=== PATIENT | male | born 1980 | race Caucasian/White ===

== ENCOUNTER 2019-01-15 12:58 | Emergency (ER) | payer OTHER, SELFPAY ==
[2019-01-15] VITALS (30 sets, daily range): BP systolic 106–117; BP diastolic 51–97; PULSE 45–77; RESP 9–24; TEMP 36.6; O2SAT 98–100
[2019-01-15] MEDS: Normal Saline Flush 10 ML SYR IVP (13:05)
[2019-01-15] MEDS: Normal Saline 1,000 ML 1000 ML IV (13:05)
--- NOTE | 2019-01-15 13:07 | DI.RAD_ITS ---
SYMPTOMS/DIAGNOSIS: SYNCOPE PA AND LATERAL CHEST: The heart is normal in size. The lungs are clear. The mediastinal structures and pleura appear intact. CONCLUSION: Normal chest.
--- NOTE | 2019-01-15 13:07 | DI.CT_ITS ---
SYMPTOMS/DIAGNOSIS: SYNCOPE CRANIAL CT (WITHOUT CONTRAST): A noncontrast cranial CT was performed. The ventricular system is normal in appearance. There is no evidence of an intracranial mass lesion. There is no evidence of a subdural or epidural hematoma. No focal areas of decreased attenuation are seen. CONCLUSION: Normal noncontrast Cranial CT.
--- NOTE | 2019-01-15 13:08 | W.ED.GENAD ---
Discharge Plan Disposition Patient Disposition: HOME Condition: Improving Discharge Details Chief Complaint: Dizzy/Sync Clinical Impression: Syncope, vasovagal Primary Care Provider: Luz,Local ED Provider: Rajeev Howard Home Meds and New Rx's Prescriptions: No Action No Known Home Meds RF: 0 Discharge Instructions Instructions: Syncope (ED) Additional Instructions: Home to rest this evening. Return to the emergency department for any acute concerns while in the area. Please make an appointment to follow-up with your physician physician upon your return this week to home in [place]. Your work-up in the emergency department today included EKG, chest x-ray, CAT scan of the head were unremarkable for any acute findings. You had laboratory work performed including a white blood cell count of 6.7, hematocrit 41.5, platelets 203, sodium 138, potassium 3.5, chloride 103, bicarb 23, BUN 18, creatinine 1.0, glucose 117, calcium 8.8, magnesium 1.8, total bili 0.4, AST 19, ALT 36, alk phos 59, albumin 3.8, Troponin <0.02 Medical Decision Making Healthy 38-year-old male from [place]. He is here visiting family for a . He was recently told he may have an abdominal/ventral wall hernia and was palpating this when he became anxious, felt flushed, became diaphoretic and then had a witnessed syncopal event without seizure activity. No tongue biting, no loss of bowel or bladder continence, no chest pain or palpitations, improved by the time of arrival. Vital signs are normal. His neurologic exam is without deficit. Differential diagnosis includes vasovagal mediated syncope, dehydration, electrolyte abnormality, must exclude cardiomegaly, intracranial mass, arrhythmia. Placed on a monitoring and evaluation advisor, screening laboratories, EKG obtained and he is referred for chest x-ray and CT scan of the head. Diagnostics: Unremarkable CT head, negative chest x-ray, labs reassuring without significant acute finding. Patient remains improved. Observed on monitoring and evaluation advisor and repeat troponin obtained and negative. He will reiterate that he was quite worried about possibility of ventral hernia prior to becoming anxious and having a brief syncopal event. I think that this is likely vagal mediated syncope. He is in the local area until Friday when he returns to [place]. He understands homecare as well as return precautions. He is stable and improved, appropriate for discharge to home at this time. Medical Records Medical records reviewed: Yes I reviewed the patient's medical records. Laboratory Results - last 24 hr 01/15/19 01/15/19 13:05 13:05 WBC 6.70 RBC 4.62 Hgb 13.9 Hct 41.5 MCV 89.8 MCH 30.1 MCHC 33.5 RDW 13.6 Plt Count 203 MPV 10.6 Immature Gran % 0.1 Neutrophils % 60.7 Lymphocytes % 31.5 Monocytes % 6.9 Eosinophils % 0.7 Basophils % 0.1 Absolute Neutrophils 4.06 Absolute Lymphocytes 2.11 Absolute Monocytes 0.46 Absolute Eosinophils 0.05 Absolute Basophils 0.01 Sodium 138 Potassium 3.5 Chloride 103 Carbon Dioxide 23.7 Anion Gap 11.3 H BUN 18 Creatinine 1.00 Estimated GFR/1.73 m2 >= 60.00 Glucose 117 H Calcium 8.8 Magnesium 1.8 Total Bilirubin 0.4 AST 19 ALT 36 Alkaline Phosphatase 59 Troponin I < 0.02 Total Protein 6.7 Albumin 3.8 ECG Data Attestation: I personally reviewed and interpreted this ECG (s) as follows: Prior ECG tracings: not available for review Interpretation: Normal sinus rhythm with a rate of 62, J-point elevation present in leads V4 through V5. No acute ST segment elevation, the QRS is narrow HPI General Mode of arrival: ambulatory. Date/Time Provider Initiated Documentation: 01/15/19 13:06. Limitations to Documentation: no limitations. Information obtained by: patient and family. History of Present Illness 38 year old M presents to the emergency department with the chief complaint of Syncope. Gradual onset of flushing sensation, anxiety., described as moderate, and is localized to the head. Patient reports no radiation. Patient started experiencing this minute(s) and it has been now resolved. No relieving factors improve symptom(s), No exacerbating factors reported . Patient notes diaphoresis and syncope; denies chest pain, headaches, loss of appetite, nausea/vomiting and shortness of breath. Patient did receive the following treatments prior to arrival, none Related Data Home Medications Medication Instructions Recorded Confirmed Unknown [No Known Home Meds] 01/15/19 01/15/19 Allergies Allergy/AdvReac Type Severity Reaction Status Date / Time No Known Allergies Allergy Unverified 01/15/19 13:07 General Stated Complaint: Dizzy/Sync CAL: 3 Review of Systems Review of Systems 8 systems reviewed and otherwise negative [facility] Social History Smoking/Tobacco Use Status: Never Alcohol Intake: current Alcohol Intake frequency: a few times a month Drug use: Never Do you feel safe at home: Yes Do you feel safe in your relationship?: Yes Exam Narrative Exam Narrative: GEN: awake, alert, oriented 3. Pleasant, well groomed, interactive. HEAD: Normocephalic, atraumatic ENT: Mucous membranes moist, oropharynx unremarkable, External ear exam unremarkable EYES: PERRL, EOMI NECK: Full ROM, no YELENA, no menigismus CHEST/RESP: Nontender, clear to auscultation bilateral, no wheeze/rhonchi/rales CARDIOVASCULAR: RRR, no murmur, rub yenny. 2+ Rad pulse bilateral ABDOMEN: Soft, nontender, no mass. +Bowel sounds EXT: Full ROM, no edema, no rash Neuro: Grossly normal neurologic exam, cranial nerves II through XII intact, conversant, interactive. Psych: Speech fluent, thoughts congruent, affect normal Course Vital Signs Temperature 36.6 C 01/15/19 13:01 Pulse 60 01/15/19 13:01 Respiratory Rate 16 01/15/19 13:01 Blood Pressure 117/62 01/15/19 13:01 Pulse Oximetry 100 01/15/19 13:01 Temperature 36.6 C 01/15/19 13:01 Temperature Source Skin 01/15/19 13:01 Pulse 60 01/15/19 13:01 Respiratory Rate 16 01/15/19 13:01 Respiratory Effort Non-Labored 01/15/19 13:05 Blood Pressure 117/62 01/15/19 13:01 Pulse Oximetry 100 01/15/19 13:01 Oxygen Delivery Method Room Air 01/15/19 13:01 Oxygen Flow Rate 0 01/15/19 13:01
[2019-01-15 13:15] LABS: Abs Immature Grans 0.01 k/cumm (0.0-0.09); Absolute Basophil Count 0.01 k/cumm (0.0-0.2); Absolute Eosinophil Count 0.05 k/cumm (0.0-0.7); Absolute Lymphocyte Count 2.11 k/cumm (1.2-3.4); Absolute Monocyte Count 0.46 k/cumm (0.11-0.7); Absolute Neutrophil Count 4.06 k/cumm (1.2-6.7); Basophils % 0.1; Eosinophils % 0.7; HCT 41.5 % (40.0-50.0); HGB 13.9 g/dL (13.5-17.5); Immature Grans % 0.1; Lymphocytes % 31.5; Mean Corp. HGB Concentration 33.5 g/dL (32.0-36.0); Mean Corpuscular Hemoglobin 30.1 pg (27.0-33.0); Mean Corpuscular Volume 89.8 fL (80-95); Mean Platelet Volume 10.6 fL (8.0-11.0); Monocytes % 6.9; Neutrophils % 60.7; Platelet Count 203 x1000/uL (130-400); RBC 4.62 m/cumm (4.50-6.00); RBC Distribution Width 13.6 % (11.8-14.1)
[2019-01-15 13:33] LABS: ALT 36 U/L (12-78); AST 19 U/L (15-37); Albumin 3.8 g/dL (3.4-5.0); Alkaline Phosphatase 59 U/L (46-116); Anion Gap 11.3 mmol/L (3-11); BUN 18 mg/dL (7-18); Bilirubin, Total 0.4 mg/dL (0.2-1.0); CO2 23.7 mmol/L (21.0-32.0); Calcium 8.8 mg/dL (8.5-10.1); Chloride 103 mmol/L (98-107); Glucose 117 mg/dL (70-100); Magnesium 1.8 mg/dL (1.8-2.4); Potassium 3.5 mmol/L (3.5-5.1); Sodium 138 mmol/L (136-145); Total Protein 6.7 g/dL (6.4-8.2)
[2019-01-15 13:35] LABS: Troponin I < 0.02 ng/mL (0.00-0.06)
[2019-01-15 15:40] LABS: Troponin I < 0.02 ng/mL (0.00-0.06)
== END 2019-01-15 16:00 | disposition home or self-care (01) ==
PROVIDERS: Emergency Provider Emergency Medicine
DX: R55 Syncope and collapse (principal)
CPT/HCPCS: 36415; 80053; 93005; 96360; 99285; 70450; 71046; 83735; 84484; 85025; 93010; 99284